=== PATIENT | female | born 1945 | race Caucasian/White ===

== ENCOUNTER 2017-01-28 10:06 | Day surgery (SDC) | payer OTHER, BC ==
[2017-01-27 14:03] VITALS: BMI 39.9
[2017-01-28 12:02] VITALS: TEMP 97.6
[2017-01-28 14:25] VITALS: BP 132/77; PULSE 76
== END 2017-01-28 13:00 | disposition home or self-care (01) ==
LOC: JASU-ENDO 10:06
PROVIDERS: ATTEND Internal Medicine Gastroenterology
PROC: 0DJD8ZZ Inspection of Lower Intestinal Tract, Via Natural or Artificial Opening Endoscopic (ICD-10-PCS; principal; 2017-01-28 11:00)
DX: Z12.11 Encounter for screening for malignant neoplasm of colon (principal); Z80.0 Family history of malignant neoplasm of digestive organs; K63.89 Other specified diseases of intestine; R19.7 Diarrhea, unspecified; Z53.8 Procedure and treatment not carried out for other reasons

== ENCOUNTER 2019-12-24 11:35 | Emergency (ER) | payer OTHER, BC ==
[2019-12-24 11:46] VITALS: TEMP 98.7; BMI 39.6
--- NOTE | 2019-12-24 11:59 | PDOC ---
History of Present Illness - General Chief Complaint: Pain Stated Complaint: LEFT ARM PAIN Time Seen by Provider: 12/24/19 11:47 - History of Present Illness Initial Comments: 12/24/19 12:07 Chief complaint: Left arm pain HPI: Left arm pain described as "aching" in the area of the biceps, with radiation to the forearm and hand, tingling in all 5 fingertips. Onset 3 days ago, not resolving. No history of injury recalled, though she carries bags frequently and performs housework. Has been told she has "arthritis" of the sp ine. Review of systems: No neck pain. No chest pain, shortness of breath, abdominal pain, nausea, vomiting, diarrhea, visual or other focal neurologic symptoms, unsteadiness of gait. No fever/chills, URI symptoms, sore throat, cough. No urinary tract symptoms, vaginal bleeding, or discharge. No lightheadedness, dizziness, vertigo. Past medical history: Elevated cholesterol, type 2 diabetes, GERD, cholesterol is controlled, diabetes is "borderline" Medications: Metformin, statin, and proton pump inhibitor Social history: No tobacco alcohol or nonprescription drugs. Fully active without disability. Denies anxiety or depression Family history: Reviewed and noncontributory Physical exam: Alert and oriented, moderately obese, no acute distress, cheerful and cooperative Afebrile, vital signs normal Head atraumatic. PERRLA 3 mm, fundi benign with sharp disc margins and good central venous pulsations. Conjunctivae clear. EOMs full without diplopia. Visual penn intact to confrontation. ENT clear Neck supple without bruit mass or nodes. No point tenderness of the cervical sp ine. No pain with movement of the neck. Chest clear, full breath sounds bilaterally, no wheezes rales or rhonchi CV S1-S2 normal without murmur rub or gallop pulses full and symmetric no JVD or edema no bruits. 80 and regular Abdomen nondistended. Bowel sounds normal. Soft without mass tenderness organomegaly Neurological C2 to 12 intact. Strength full and symmetric. No focal sensorimotor deficits. Gait stable and unimpaired. Cerebellar function intact. Specifically, there is no demonstrable weakness in the left arm or hand and no decreased sensation to light touch or pin. Extremities no CCE. There is mild tenderness over the belly of the left biceps muscle, but no deformity or mass. Skin clear, no rash, adequate turgor and wet mucous membranes Assessment: Most consistent with musculoskeletal pain, possibly with mild nerve irritation. Cardiac origin is unlikely. Plan: EKG and enzymes, CBC and chemistries, further evaluation depending on results. Symptomatic treatment. Past History - Medical History Allergies/Adverse Reactions: Allergies Allergy/AdvReac Type Severity Reaction Status Date / Time No Known Allergies Allergy Verified 12/24/19 11:39 Home Medications: Ambulatory Orders Cholecalciferol (Vitamin D3) [Vitamin D3] 2,000 unit PO DAILY 12/24/19 Cyclobenzaprine HCl [Flexeril -] 10 mg PO TID #10 tablet 12/24/19 Famotidine [Pepcid -] 40 mg PO DAILY 12/24/19 COPD: No Diabetes: Yes (BORDERLINE) GI Disorders: Yes (ACID REFLUX) HTN: Yes Hypercholesterolemia: Yes - Surgical History Lung Surgery: Yes (UPPER RIGHT LOBE OF LUNG REMOVED) Orthopedic Surgery: Yes (JOHN. KNEE REPLACEMENT) - Reproductive History Is Patient Now?: No - Psycho-Social/Smoking History Smoking History: Never smoked Have you smoked in the past 12 months: No Information on smoking cessation initiated: No - Substance Abuse Hx (Audit-C & DAST Scrn) How often the patient has a drink containing alcohol: Monthly or less Score: In Men: 4 or > Positive; In Women: 3 or > Positive: 1 Screen Result (Pos requires Nsg. Audit-10AR): Negative In the last yr the pt used illegal drug/Rx for NonMed reason: No Score: Yes response is considered Positive: 0 Screen Result (Positive result requires Nsg. DAST-10): Negative *Physical Exam - Vital Signs Last Vital Signs Temp Pulse Resp BP Pulse Ox 98.7 F 81 18 145/74 96 12/24/19 11:35 12/24/19 11:35 12/24/19 11:35 12/24/19 11:35 12/24/19 11:35 ED Treatment Course - LABORATORY CBC & Chemistry Diagram: 12/24/19 12:11 12/24/19 12:07 Medical Decision Making - Medical Decision Making 12/24/19 12:21 EKG shows normal sinus rhythm 77/min, normal axes and intervals, no ST-T wave changes, normal EKG 12/24/19 13:34 CBC, chemistries, cardiac enzymes without significant abnormalities. Presumptive musculoskeletal pain, rest and symptomatic treatment, follow-up primary physician. Return to ER if pain worse or further symptoms develop. Discharge - Discharge Information Problems reviewed: Yes Clinical Impression/Diagnosis: Musculoskeletal pain of extremity Condition: Stable Disposition: HOME - Admission No - Additional Discharge Information Prescriptions: Cyclobenzaprine HCl [Flexeril -] 10 mg PO TID #10 tablet - Follow up/Referral Referrals: Jose Luis Hernandez MD [Primary Care Provider] - 3 days - Patient Discharge Instructions Patient Printed Discharge Instructions: DI for Musculoskeletal Pain Additional Instructions: Use heat alternating with ice, take Tylenol as needed. Rest, avoid carrying bags, heavy work. Follow-up with primary physician in 3 days. If pain worse or other symptoms develop, return to ER for further evaluation - Post Discharge Activity
[2019-12-24 12:13] LABS: BASO % 0.5 % (0-2.0); EOS % 2.2 % (0-4.5); HEMATOCRIT 41.6 % (32.4-45.2); HEMOGLOBIN 13.6 GM/dl (10.7-15.3); LYMPH % 26.1 % (8-40); MCH 31.1 pg (25.7-33.7); MCHC 32.6 g/dl (32.0-36.0); MEAN CELL VOLUME 95.3 fl (80-96); MONO % 6.1 % (3.8-10.2); NEUT % 65.1 % (42.8-82.8); PLATELET COUNT 263 K/MM3 (134-434); RBC 4.37 M/mm3 (3.60-5.2); RDW 13.9 % (11.6-15.6); WHITE BLOOD COUNT 6.4 K/mm3 (4.0-10.8)
[2019-12-24 12:48] LABS: ALBUMIN 3.5 g/dl (3.4-5.0); BILIRUBIN,TOTAL 0.6 mg/dl (0.2-1); CALCIUM 8.9 mg/dl (8.5-10); CREATININE 0.7 mg/dl (0.55-1.3); POTASSIUM 4.4 mmol/L (3.5-5.1); TOT PROT 6.6 g/dl (6.4-8.2)
[2019-12-24 13:56] VITALS: BP 117/86; PULSE 78
--- NOTE | 2019-12-27 11:42 | EKG ---
Test Reason : Blood Pressure : / mmHG Vent. Rate : 077 BPM Atrial Rate : 077 BPM P-R Int : 140 ms QRS Dur : 080 ms QT Int : 394 ms P-R-T Axes : 053 015 058 degrees QTc Int : 445 ms NORMAL SINUS RHYTHM NORMAL ECG NO PREVIOUS ECGS AVAILABLE Confirmed by JOSE JUAN MOYER MD ([id number]) on 12/27/2019 11:42:05 AM Referred By: AUREA MARTÍNEZ Confirmed By:JOSE JUAN MOYER MD
== END 2019-12-24 13:55 | disposition home or self-care (01) ==
LOC: FER 11:35
DX: M79.10 Myalgia, unspecified site (principal)
CPT/HCPCS: 36415; 80053; 82550; 84484; 85025; 93005; 99284-25

== ENCOUNTER 2024-08-25 12:24 | Emergency (ER) | payer OTHER, BC ==
[2024-08-25 12:45] VITALS: TEMP 97.5; BMI 39.6
[2024-08-25] MEDS ORDERED: ACETAMINOPHEN INJECTION 100 ML ONE (13:25)
[2024-08-25] MEDS ORDERED: MAG HYDROX/AL HYDROX/SIMETH 30 ML UNIT-DOSE CUP ONE (13:25)
[2024-08-25] MEDS: ACETAMINOPHEN 1000 MG/100 ML BAG IVPB ONE (13:31)
[2024-08-25] MEDS: MAG HYDROX/AL HYDROX/SIMETH 30 ML UNIT-DOSE CUP PO ONE (13:31)
[2024-08-25] MEDS: FAMOTIDINE 20 MG/50 ML IVPB 20 MG/50 ML MG IVPB ONE (13:32)
[2024-08-25 13:42] LABS: ABSOLUTE IMMATURE GRANULOCYTES 0.01 x10^3/uL (0.0-0.031); BASOPHILS # 0.02 x10^3/uL (0.01-0.08); EOSINOPHIL % 1.3 % (0.7-5.8); EOSINOPHILS # 0.11 x10^3/uL (0.04-0.36); HEMATOCRIT 45.3 % (34.1-44.9); HEMOGLOBIN 14.8 g/dL (11.2-15.7); MCHC 32.7 g/dl (32.2-35.5); MEAN CELL VOLUME 94.2 fl (79.4-94.8); MEAN PLT VOLUME 9.7 fl (9.4-12.3); MONOCYTE # 0.62 x10^3/uL (0.24-0.86); MONOCYTE % 7.5 % (4.7-12.5); PLATELET COUNT 278 x10^3/uL (182-369); RDW 14.1 % (12.4-16.6)
[2024-08-25 13:46] LABS: INR 0.99 (0.83-1.09)
[2024-08-25 13:49] LABS: ACTIVATED PTT 35.6 SECONDS (25.2-36.5)
[2024-08-25 13:59] LABS: ALBUMIN 3.9 g/dl (3.4-5.0); BILIRUBIN,TOTAL 0.4 mg/dl (0.2-1); CALCIUM 9.3 mg/dl (8.5-10.1); CREATININE 0.8 mg/dl (0.6-1.3); POTASSIUM 4.4 mmol/L (3.5-5.1); TOT PROT 6.5 g/dl (6.4-8.2)
[2024-08-25 16:42] VITALS: BP 124/64; PULSE 70; RESP 16
== END 2024-08-25 16:45 | disposition home or self-care (01) ==
LOC: FER 12:24
PROC: 3E033NZ Introduction of Analgesics, Hypnotics, Sedatives into Peripheral Vein, Percutaneous Approach (ICD-10-PCS; principal; 2024-08-25)
DX: R91.1 Solitary pulmonary nodule (principal); M54.6 Pain in thoracic spine; R06.02 Shortness of breath; R07.81 Pleurodynia
CPT/HCPCS: 36415; 71046-TC-FY; 71250-TC; 80053; 83690; 84484; 85025; 85610; 85730; 93005; 99285-25; J0131